=== PATIENT | female | born 1990 | race Caucasian/White ===

== ENCOUNTER 2016-12-07 16:35 | Inpatient (IN) | payer OTHER ==
[~2016-12-07] VITALS: Ht 165.1 cm; Wt 112.5 kg
[~2016-12-07 16:35] MED LIST: PREN1TAB47 PO
[2016-12-07] MEDS ORDERED: Oxytocin 30 Units/500 mL LR Premix IV ONE (18:47)
--- NOTE | 2016-12-07 19:15 | PCM.OBVAG ---
Vaginal Delivery Date of Service Dec 07, 2016 Pre Operative Diagnosis Pre Operative Diagnosis Term , GBS negative Post Operative Diagnosis Post Operative Diagnosis Normal Spontaneous Vaginal Delivery Procedure Obstetical Procedure: Normal Spontaneous Vaginal Delivery Indication for Procedure Induction: Active labor, Progressed normally through labor Findings Obstetrical Findings: (Male), 1 minute (8), 5 minutes (9), Placenta (Intact/Normal), Perineal Laceration (none) Post Procedure Plan Post delivery Condition: Mom stable Bryson Colbert MD Dec 07, 2016 19:15
[2016-12-07] MEDS ORDERED: Lactated Ringer's 1,000 ML IV SCH (19:17)
[2016-12-07] MEDS ORDERED: LANOlin HPA 7 Gm Ointment TOPICAL PRN (19:20)
[2016-12-07] MEDS ORDERED: Oxytocin 10 Unit/mL Inj IM PRN (19:20)
[2016-12-07] MEDS ORDERED: HYDROcodone-APAP 5-325 mg Tablet PO PRN (19:20)
[2016-12-07] MEDS ORDERED: Carboprost 250 mCg/mL Inj IM PRN (19:20)
[2016-12-07] MEDS ORDERED: Methylergonovine 0.2 mg/mL Inj IM PRN (19:20)
[2016-12-07] MEDS ORDERED: Witch Hazel-Glycerin Pads TOPICAL PRN (19:20)
[2016-12-07] MEDS ORDERED: Benzocaine (Dermoplast) 20% 60 Gm Spray TOPICAL PRN (19:20)
[2016-12-07] MEDS ORDERED: Hemorrhage Kit, Post Partum XX ONE (19:20)
[2016-12-08 06:34] LABS: Mean Corpuscular Hemoglobin 27.1 pg (27.0-35.0); Mean Corpuscular Volume 83.2 fL (81-100)
--- NOTE | 2016-12-08 12:47 | PCM.PNOBPP ---
Subjective Date of Service Dec 08, 2016 Post : Spontaneous Vaginal Delivery Lochia: Normal Gastrointestinal: Good Appetite, No N/V Postop Activity: Ambulating Independently Group B Strep Results: Negative Labs Laboratory Tests 12/07/16 18:30: Hold Purple Top Tube Received 12/08/16 06:05: White Blood Count 11.1, Red Blood Count 3.51, Hemoglobin 9.5, Hematocrit 29.2, Mean Corpuscular Volume 83.2, Mean Corpuscular Hemoglobin 27.1, Mean Corpuscular Hemoglobin Concent 32.5, Red Cell Distribution Width 14.3, Platelet Count 249 Exam Vital Signs Vital Signs: VS reviewed, stable Exam Abdomen: Fundus firm Extremities: No cords, No tenderness/swelling Lungs: Clear to Auscultation Heart: Exam Unremarkable, Regular Rate/Rhythm, Normal S1, Normal S2, No Murmurs /Rubs/Gallops General: Alert, Oriented X3, Cooperative, No Acute Distress OB Post Assessment/Plan Assessment doing well on day 1; anticipate going home this PM. Tina Shah MD Dec 08, 2016 12:47
--- NOTE | 2016-12-08 12:55 | PCM.DC.OB ---
Obstetrical Discharge Summary Date of Service Dec 08, 2016 Date of hospital admission Dec 07, 2016 at 18:10 Date of Discharge: Dec 08, 2016 Providers Admitting Physician: Lamont Storey MD Primary Care Physician: Lamont Storey MD Attending Physician: Lamont Storey MD Diagnosis at Time of Discharge normal vaginal delivery at term. Problems: Brief History and Physical: care with Dr. Lamont Storey at [facility] [place] without major problems; blood type: B+; GBS neg; other labs normal. Admitted yesterday for active labor, and had a normal vaginal delivery at 40 wk 1 d gestational age; wt: 4454 g, apg 8/9. Both the mother and the did well after the delivery Hospital Course: care with Dr. Lamont Storey at [facility] [place] was without major problems; blood type: B+; GBS neg; other labs normal. Admitted yesterday for active labor, and had a normal vaginal delivery at 40 wk 1 d gestational age; wt: 4454 g, apg 8/9. Both the mother and the did well after the delivery. Vit/Fe Fumarate/Fa-Expunged Drug, Do (-Expunged Drug, Do Not Renew!) 1 Tab Tablet 1 TAB PO DAILY (Reported) Discharge Medications: (1) ibuprofen 600 mg po q 6 hr prn pain; (2) Colace 100 mg po bid prn constipation; (3) ferrous gluconate 325 mg po daily; sent to [facility]. Disposition home Follow-up plan f/u up with Dr. Storey at [facility] [place] for exam in 4 to 6 wk, sooner as needed. Discharge Diet: Heart Healthy Discharge Activity-General: Pelvic Rest for 6 weeks Tina Shah MD Dec 08, 2016 12:55
--- NOTE | 2016-12-08 13:06 | PCM.DIOB ---
Obstetrical Disch Instruction Date of Service: Dec 08, 2016 Dates of Hospitalization Date of Hospital Admission Dec 07, 2016 at 18:10 Providers Admitting Physician: Lamont Storey MD Primary Care Physician: Lamont Storey MD Attending Physician: Lamont Storey MD Discharge Diagnosis Discharge Diagnosis normal vaginal delivery at term Post Operative diagnosis normal vaginal delivery of a healthy term . Problems: Diet Discharge Diet: Heart Healthy Activity Discharge Activity-General: Pelvic Rest for 6 weeks Dressing and Incisional Care Hygiene: May shower Follow Up Plan Follow Up Plan f/u at [place] [facility] to see Dr. Storey for care in 4 to 6 wks, sooner as needed. Call your provider for: Fever or Chills, Shortness of breath, Heavy vaginal bleeding, Heavy bleeding, Epigastric pain, Excessive constipation, Vaginal discomfort, Red painful breasts Tina Shah MD Dec 08, 2016 13:06
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
[2016-12-08 18:54] VITALS: BP 129/66; PULSE 115; RESP 16
== END 2016-12-08 20:00 | disposition home or self-care (01) | DRG 775 ==
LOC: FBCO 16:35 → FBC 18:10
PROVIDERS: ADMIT Family Medicine; ATTEND Family Medicine
PROC: 10E0XZZ Delivery of Products of Conception, External Approach (ICD-10-PCS; principal; 2016-12-07)
DX: O62.3 Precipitate labor (principal); Z37.0 Single live birth; Z3A.40 40 weeks gestation of pregnancy